=== PATIENT | male | born 1955 | race Caucasian/White ===

== ENCOUNTER → 2017-03-25 | Outpatient (CLI) | payer BC ==
[2017-03-25 16:25] LABS: HEMOGLOBIN A1C 7.62 % (4.2-6.0)
[2017-03-25 18:22] LABS: CREATININE, URINE 30.3 MG/DL (15-500)
== END ==
LOC: LAB 08:11
PROVIDERS: ATTEND Internal Medicine
DX: E11.9 Type 2 diabetes mellitus without complications (principal)
CPT/HCPCS: 82043; 83036